=== PATIENT | female | born 1940 | race Caucasian/White ===

== ENCOUNTER 2018-06-28 11:46 | Inpatient (IN) ==
[2018-06-28] MEDS ORDERED: Sodium Chloride 0.9% 1,000 ML PRIMARY IV ONE (12:19)
[2018-06-28] MEDS ORDERED: FAMOTIDINE 20 MG/2 ML VIAL IVP ONE (12:19)
[2018-06-28 12:33] LABS: BASOPHILS # (AUTO) 0.02 10*3/UL; BASOPHILS % (AUTO) 0.1 % (0-1); EOSINOPHILS # (AUTO) 0 10*3/UL; EOSINOPHILS % (AUTO) 0 % (0-8); Hemoglobin [HGB] 14.6 g/dL (12.0-16.0); LYMPHOCYTES # (AUTO) 0.88 10*3/uL; MEAN CORPUSCULAR HEMOGLOBIN 30.6 PG (27-31); MEAN CORPUSCULAR VOLUME 90.1 FL (81-99); MEAN PLATELET VOLUME 9.7 FL (7.4-12.2); MONOCYTES # (AUTO) 0.99 10*3/UL (0.3-0.8); MONOCYTES % (AUTO) 4.3 % (5-15); NEUTROPHILS # (AUTO) 21.33 10*3/UL; NEUTROPHILS % (AUTO) 91.7 % (50-80); RED BLOOD COUNT 4.77 10^6/uL (4.20-5.40)
[2018-06-28 12:50] LABS: BLOOD UREA NITROGEN 27 mg/dL (7-22); SERUM ALBUMIN 4.2 g/dL (3.5-4.8)
[2018-06-28 12:51] LABS: LIPASE 42 IU/L (23-300)
[2018-06-28 12:54] LABS: PLATELET MORPHOLOGY COMMENT NORMAL MORPHOLOGY (NORM); RBC MORPHOLOGY COMMENT NORMAL MORPHOLOGY (NORM); WBC MORPHOLOGY COMMENT NORMAL MORPHOLOGY (NORM)
[2018-06-28 12:55] LABS: BILIRUBIN,URINE NEGATIVE (NEG); CLARITY,URINE CLEAR (CLEAR); COLOR,URINE YELLOW (Y); GLUCOSE, URINE (UA) NEGATIVE (NEG); OCCULT BLOOD,URINE MODERATE (NEG); PROTEIN,URINE TRACE mg/dl (NEG); UROBILINOGEN,URINE 0.2 EU/dL (0.2)
[2018-06-28 12:57] LABS: BACTERIA,URINE RARE; RBC,URINE 0-3 /hpf; SQUAMOUS EPITHELIAL CELL,UR RARE; URINE SAMPLE TYPE CATH SPECIMEN
[2018-06-28] MEDS ORDERED: MORPHINE SULFATE 4 MG/1 ML IVP ONE (13:42)
--- NOTE | 2018-06-28 13:58 | DI ---
INDICATION: Abdominal pain TECHNIQUE: Multiple, contiguous axial cuts of the abdomen and pelvis are obtained from the lung bases to the ischial tuberosities. Sagittal and coronal reformatted images are available. COMPARISON: None FINDINGS: The lung bases are clear. Coarse calcification of the mitral valve. The liver and spleen are normal in size and free of mass lesions. The gallbladder, bile ducts and pancreas are normal. The adrenal gland are unremarkable. The kidneys are normal in size and contour. No stones, lesions or hydronephrosis. The appendix is unremarkable. No obstruction. Thickening of the transverse colon to the sigmoid colon with surrounding inflammatory changes seen consistent with colitis. No organized fluid collection. Aorta is normal caliber. Atherosclerotic vascular disease. No adenopathy or extraluminal air. The osseous structures are normal IMPRESSION: 1. Thickening of the transverse colon to the sigmoid colon with surrounding inflammatory changes seen consistent with colitis. 2. Atherosclerotic vascular disease.
--- NOTE | 2018-06-28 15:41 | CONSULT ---
Consult Note - Consult Consult Date: 06/28/18 Reason for Consult: PreOp Consulation : General Surgery Requesting Physician: Dr. Hearn Primary Care Provider: NOT IN TABLE - History of Present Illness History of Present Illness: 77-year-old female who's struggling through [place] who developed left lower quadrant abdominal pain. The pain started yesterday at 2 PM. She started having bloody stools at 4 AM today. She states that the pain is a 10 out of 10. She has never had pain like this before. The pain just want to get better since she came in for evaluation. She had a 22,000 white count. BUN was elevated at 23. CT scan showed sigmoid and transverse colitis. No free air. There is no air within the bowel wall. Patient tells me that she had a colonoscopy one year ago that was "unremarkable". This was done [facility]. Therefore , there is no records of this. Review of Systems - Constitutional Constitutional: REPORTS: Negative System Review, General Health Excellent - Integumentary Integumentary: REPORTS: Negative System Review - Ear/Nose Exam Ear/Nose Exam: REPORTS: Negative System Review - Respiratory Respiratory: REPORTS: Negative System Review - Cardiovascular Cardiovascular: REPORTS: Negative System Review - Gastrointestinal Gastrointestinal / Abdominal: REPORTS: See HPI - Genitourinary Genitourinary: REPORTS: Negative System Review - Gynecological Gynecological: REPORTS: Negative System Review - Musculoskeletal Musculoskeletal: REPORTS: Back Pain - Hematlogic / Lymphatic Hematologic / Lymphatic: REPORTS: Negative System Review - Neurological Neurologic: REPORTS: Negative System Review - Psychiatric Psychiatric: REPORTS: Negative System Review Past Medical History Medical History: Hypercholesterolemia hypertension hypothyroidism history of a CVA Surgical History: Hysterectomy back surgery knee scopes and a bladder sling Tobacco Use: Never Smoker In the Past 12 Months, Have Used or Abuse Any of the Following Substance: None Medication / Allergies Home Medications: Home Medications 3 Medication Instructions Recorded Confirmed Type Amlodipine Besylate [Norvasc] 2.5 mg PO DAILY 06/28/18 06/28/18 History Calcium Carbonate [Caltrate 600] 600 mg PO DAILY 06/28/18 06/28/18 History Clopidogrel [Plavix] 75 mg PO Q48H 06/28/18 06/28/18 History Krill Oil 300 mg PO DAILY 06/28/18 06/28/18 History Levothyroxine Sodium [Synthroid] 25 mcg PO DAILY 06/28/18 06/28/18 History Lisinopril 10 mg PO DAILY 06/28/18 06/28/18 History Magnesium Oxide [Magnesium] 500 mg PO DAILY 06/28/18 06/28/18 History Methenamine 1 gm PO DAILY 06/28/18 06/28/18 History Pitavastatin Calcium [Livalo] 2 mg PO DAILY 06/28/18 06/28/18 History Polyethylene Glycol [Polyox 350 mg PO PRN PRN 06/28/18 06/28/18 History [id number]] Allergies/Adverse Reactions: Allergies 3 Allergy/AdvReac Type Severity Reaction Status Date / Time Penicillins Allergy RASH Verified 06/28/18 11:49 quinine Allergy HIVES Verified 06/28/18 11:49 Results - Labs CBC and BMP: 06/28/18 12:19 06/28/18 12:19 Exam - Vitals Vital Signs: Vital Signs Temperature 98.7 F Temperature Source Temporal Artery Scan Pulse Rate [Pulse Oximeter] 72 Respiratory Rate 20 Blood Pressure [Left Arm] 178/79 Pulse Ox 95 Oxygen Delivery Method Room Air Height 5 ft 4 in Weight 140 lb - General General Appearance: No Acute Distress, Cooperative - Head Head Exam: Normocephalic - Eye Eye Exam: POSITIVE: PERRL, EOMI - Respiratory Respiratory Exam: POSITIVE: Clear to Auscultation - Bilaterally, Breathing Non Labored - GI/Abdominal GI/Abdominal Exam: POSITIVE: Soft, No Hepatomegaly, No Splenomegaly Additional GI/Abdominal Exam Details: Patient has no pulsatile masses. Abdomen is soft but tender to palpation left lower quadrant. There is no rebound or rigidity present - Rectal Rectal Exam: POSITIVE: Deferred - External Exam: POSITIVE: Deferred - Extremities Extremities Exam: POSITIVE: Full ROM, No Edema Present - Neurological Neurological Exam: POSITIVE: Alert, Oriented x 3, CN II-XII Intact - Psychiatric Psychiatric Exam: POSITIVE: Normal Affect, Normal Mood - Integumentary Integumentary Exam: POSITIVE: Normal Color, Dry Assessment and Plan - Patient Problems (1) Diverticulitis large intestine w/o perforation or abscess w/bleeding Current Visit: Yes Status: Acute Code(s): K57.33 - Diverticulitis of large intestine without perforation or abscess with bleeding - Assessment / Plan Additional Assessment/Plan Details: I think the patient most likely has diverticulitis. He does not appear to be freely perforated with an abscess. There is some bloody stools associated with it. Patient will need to hold her Plavix. She'll need to be on IV antibiotics. Within the differential diagnosis ischemic colitis, colon cancer. Given the fact the patient had a normal colonoscopy within a year makes colon cancer unlikely. Patient has no other reason for ischemic colitis therefore do not think this is the most likely diagnosis either.
--- NOTE | 2018-06-28 15:54 | EKG ---
[address] [address] Measurements Intervals [place] Rate: 84 P: 57 VT: 150 QRS: 42 QRSD: 94 T: 44 QT: 391 QTc: 432 Interpretive Statements SINUS RHYTHM No previous ECG available for comparison Electronically Signed On 06-29-18 08:20:17 MDT by Gil Chawla MD [email or web address]
--- NOTE | 2018-06-28 16:05 | PDOC ---
HPI - History of Present Illness Date of Service: 06/28/18 Time of Service: 16:00 Chief Complaint: Abdominal pain that started today with the rectal bleed History of Present Illness: This is 77 years old female with medical history significant for history of hypertension, hypothyroidism, hypercholesterolemia and history of stroke in 2005 who presented to the hospital with abdominal pain that started today. She said she felt constipated last night and took some laxative. 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 Never had this pain before. Because of that came into the ER a CT in the ER showed the colitis and elevated white count. And hence the admission. Currently the pain is mainly in the left lower quadrant. She rates her pain may be 5 out of 10. she feels cold. No nausea, no vomiting. No other symptoms. Past Medical History Medical History: 1. Hypercholesterolemia. 2. Hypertension. 3. Hypothyroidism. 4. History of a CVA that resulted in some right-sided weakness in 2005 apparently she recovered most of her function. 5. History of colonic polyp removal in the . Last coloscopy was 2002 Surgical History: 1. History of Hysterectomy. 2. History of back surgery. 3. Knee scopes. 4. bladder sling Family History: Reviewed an Not Pertinent Past Social History: She used to smoke quit in 2005, doesn't drink no drugs. Lives in [place]. She is camping with her in [place]. They recently visited she [facility] and [place]. They plan to stay in the area up to the . Tobacco Use: Former Smoker In the Past 12 Months, Have Used or Abuse Any of the Following Substance: None Alcohol Use: None Medication / Allergies Home Medications: Home Medications 3 Medication Instructions Recorded Confirmed Type Amlodipine Besylate [Norvasc] 2.5 mg PO DAILY 06/28/18 06/28/18 History Calcium Carbonate [Caltrate 600] 600 mg PO DAILY 06/28/18 06/28/18 History Clopidogrel [Plavix] 75 mg PO Q48H 06/28/18 06/28/18 History Krill Oil 300 mg PO DAILY 06/28/18 06/28/18 History Levothyroxine Sodium [Synthroid] 25 mcg PO DAILY 06/28/18 06/28/18 History Lisinopril 10 mg PO DAILY 06/28/18 06/28/18 History Magnesium Oxide [Magnesium] 500 mg PO DAILY 06/28/18 06/28/18 History Methenamine 1 gm PO DAILY 06/28/18 06/28/18 History Pitavastatin Calcium [Livalo] 2 mg PO DAILY 06/28/18 06/28/18 History Polyethylene Glycol [Polyox 350 mg PO PRN PRN 06/28/18 06/28/18 History [id number]] Allergies/Adverse Reactions: Allergies 3 Allergy/AdvReac Type Severity Reaction Status Date / Time Penicillins Allergy RASH Verified 06/28/18 11:49 quinine Allergy HIVES Verified 06/28/18 11:49 Review of Systems - Review of Systems All Systems: Reviewed & No Additional Complaints Except as Stated Exam - Vitals Vital Signs: Vital Signs Temperature 99.0 F Temperature Source Temporal Artery Scan Pulse Rate [Pulse Oximeter] 70 Respiratory Rate 18 Blood Pressure [Left Arm] 159/51 Pulse Ox 92 Oxygen Delivery Method Nasal Cannula Height 5 ft 4 in Weight 138 lb 9.6 oz - General General Appearance: No Acute Distress, Cooperative - Head Head Exam: Normal Inspection, Atraumatic - Eye Eye Exam: POSITIVE: Normal Appearance - ENT ENT Exam: POSITIVE: Normal Exam - Neck Neck Exam: Normal Inspection - Respiratory Respiratory Exam: POSITIVE: Clear to Auscultation - Bilaterally - Cardiovascular Cardiovascular Exam: POSITIVE: RRR - GI/Abdominal GI/Abdominal Exam: POSITIVE: Normal Bowel Sounds, Non Distended, Soft, No Organomegaly Additional GI/Abdominal Exam Details: Tenderness in left lower quadrant noted. - Rectal Rectal Exam: POSITIVE: Deferred - External Exam: POSITIVE: Deferred - Extremities Extremities Exam: POSITIVE: Normal Inspection - Back Back Exam: POSITIVE: Normal Inspection - Neurological Neurological Exam: POSITIVE: Alert, Oriented x 3, CN II-XII Intact, No Facial Droop, Speech Intact / Clear, Moves All Extremities Equally - Psychiatric Psychiatric Exam: POSITIVE: Normal Affect - Integumentary Integumentary Exam: POSITIVE: Normal Color Results - Labs CBC and BMP: 06/28/18 12:19 06/28/18 12:19 - EKG Data -: EKG Interpreted by Me Rate: Normal EKG Shows Normal: Sinus Rhythm - EKG Data EKG Interpretation: Other (No signifcant EKG changes noted.) - Imaging Status: Report Reviewed by Me (CT abdoemn 1. Thickening of the transverse colon to the sigmoid colon with surrounding inflammatory changes seen consistent with colitis. 2. Atherosclerotic vascular disease) Assessment and Plan - Patient Problems (1) Diverticulitis large intestine w/o perforation or abscess w/bleeding Current Visit: Yes Status: Acute Comment: Per my discussion with Dr. Pete he think this is more diverticulitis. Another possibility is ischemic colitis. Will put her on IV fluids, clear liquid and IV antibiotics. Will repeat her labs in the morning. To me she said the last colonoscopy was in 2002. We'll hold her Plavix just in case she needs surgical intervention. Code(s): K57.33 - Diverticulitis of large intestine without perforation or abscess with bleeding (2) Hypertension Current Visit: Yes Status: Acute Comment: Will put her back on her usual medications Code(s): I10 - Essential (primary) hypertension (3) Hypothyroidism Current Visit: Yes Status: Acute Comment: Resume her previous medication Code(s): E03.9 - Hypothyroidism, unspecified (4) Hypercholesterolemia Current Visit: Yes Status: Acute Comment: Same med Code(s): E78.00 - Pure hypercholesterolemia, unspecified
[2018-06-28] MEDS: Ertapenem Inj 1 GM in Sodium Chloride 0.9% 100 ML IV SCH (16:08)
[2018-06-28] MEDS ORDERED: ACETAMINOPHEN 325 MG TABLET PO PRN (16:24)
[2018-06-28] MEDS ORDERED: ONDANSETRON 4 MG/2 ML VIAL IVP PRN (16:24)
[2018-06-28] MEDS ORDERED: CALCIUM CARBONATE 500 MG (TUMS) CHEWABLE TABLET PO PRN (16:24)
[2018-06-28] MEDS ORDERED: LIDOCAINE W/ SODIUM BICARB 0.5 ML SYR SUBD PRN (16:24)
[2018-06-28] MEDS: Lactated Ringers 1,000 ML PRIMARY IV SCH (16:43)
[2018-06-28] MEDS: MORPHINE SULFATE 2 MG/1 ML IVP PRN ×2 (18:45→22:03)
[2018-06-28] MEDS: PITAVASTATIN CALCIUM 2 MG PO SCH (20:53)
[2018-06-29] MEDS: MORPHINE SULFATE 2 MG/1 ML IVP PRN ×6 (00:38→22:29)
[2018-06-29] MEDS: Lactated Ringers 1,000 ML PRIMARY IV SCH ×3 (00:38→18:04)
--- NOTE | 2018-06-29 04:21 | PDOC ---
Abdomen/Flank HPI - General Chief Complaint: Abdomen Pain Stated Complaint: ab pain and bloody stool Date Seen by Provider: 06/28/18 Time Seen by Provider: 12:00 Source: POSITIVE: Patient, Spouse Exam Limitations: POSITIVE: No limitations Nurse's Notes Reviewed & Considered: Yes - History of Present Illness Initial Comments: The patient is a 77-year-old female. She states that since around 2:30 AM this morning she has had abdominal pain, mainly in the left lower quadrant of the abdomen. She states that she's also had some bright red rectal bleeding. Patient has had a hysterectomy and a "bladder ". She states 8 she still has her appendix and gallbladder. She has felt constipated for the last 2 days. No associated fevers, although she states she has felt "sweaty ". No nausea, vomiting, melena or dysuria or hematuria. Body Location Affected: REPORTS: Abdomen Timing: REPORTS: Constant Duration: <24 hours (Approximately 10 hours) Severity: Moderate Quality: REPORTS: "Pain" Abdominal Pain Onset Location: REPORTS: LLQ Abdominal Pain Radiation: REPORTS: No radiation Context: REPORTS: None Modifying Factors: improves with: Nothing Associated Symptoms: REPORTS: Other (Chun blood per rectum) Similar Symptoms Previously: No Recent Care Received: REPORTS: Denies Any Prior Injuries Related to Current Complaint?: No - Patient Home Medications Home Medications: Home Medications Amlodipine Besylate [Norvasc] 2.5 mg PO DAILY 06/28/18 Calcium Carbonate [Caltrate 600] 600 mg PO DAILY 06/28/18 Clopidogrel [Plavix] 75 mg PO Q48H 06/28/18 Krill Oil 300 mg PO DAILY 06/28/18 Levothyroxine Sodium [Synthroid] 25 mcg PO DAILY 06/28/18 Lisinopril 10 mg PO DAILY 06/28/18 Magnesium Oxide [Magnesium] 500 mg PO DAILY 06/28/18 Methenamine 1 gm PO DAILY 06/28/18 Pitavastatin Calcium [Livalo] 2 mg PO DAILY 06/28/18 Polyethylene Glycol [Polyox Wsr-301] 350 mg PO PRN PRN 06/28/18 - Patient Allergies Allergies/Adverse Reactions: Allergies 3 Allergy/AdvReac Type Severity Reaction Status Date / Time Penicillins Allergy RASH Verified 06/28/18 11:49 quinine Allergy HIVES Verified 06/28/18 11:49 Past Medical History - heen HEENT History: Denies History Cardiovascular History: Hypertension, Hyperlipidemia Respiratory History: Denies History Gastrointestinal History: Other (please comment) Additional Gastrointestinal History: hx of polyps Genitourinary History: Other (please comment) Additional Genitourinary History: bladder sling in place Endocrine History: Hypothyroidism Musculoskeletal History: Arthritis, Back Pain, Joint Pain, Other (please comment ) Additional Musculoskeletal History: Left foot, left shoulder, r carpel tunnel, L toe, Neurological History: CVA Blood Disorders: Denies History Psychiatric History: Other (please comment) Additional Psychiatric History: para 5 4 History of Sexually Transmitted Diseases: No Female Reproductive History: Hysterectomy In Past Year Been Physically Harmed or Verbally Threatened: No History of MDRO: No History of Other Communicable Diseases: No Tobacco Use: Former Smoker In the Past 12 Months, Have Used or Abuse Any Substance: None Previous Surgical History: Yes Type / Date of Surgery: 1982 right toe. 1990 polyp removal. 1992 ganglion cyst removal r wrist. 1994 r shoulder scope. 2004 refactive eye surgery. 2005 l shoulder scope. 2006 right carpal tunnel release. 2007 l foot/ l toe. 2008 l foot fusion mortons nerve removal. 2009 r thumb. 2009 polyps removed. 2013 lumbar laminectomy x 2. 2016 hysterectomy / sacralcopoplexy. 2018 radiofrequency ablation Significant Family History: No pertinent family hx Past Medical History Reviewed: Reviewed - No Changes ROS - Limitations ROS Limitations: No Limitations Constitution: REPORTS: Denies Symptoms Cardiovascular: REPORTS: Denies Cardiac Symptoms Respiratory: REPORTS: Denies Resp Symptoms Neurological: REPORTS: Denies Neuro Symptoms Gastrointestinal: REPORTS: Abdominal Pain, Bloody Stools Endocrine: REPORTS: Denies Symptoms Musculoskeletal: REPORTS: Denies MS Symptoms Genitourinary: REPORTS: Denies Symptoms Eyes: REPORTS: Denies Symptoms ENT: REPORTS: Denies Symptoms Skin: REPORTS: Denies Skin Symptoms Lympathic: REPORTS: Denies Lympathic Symptoms Immunologic: POSITIVE: Denies Symptoms Psychiatric: POSITIVE: Denies Psych Symptoms Abdominal/Flank Pain PE - General Appearance General Appearance: POSITIVE: Alert, Cooperative, No Acute Distress, No Evidence of Trauma - Neck Neck: POSITIVE: Normal Inspection, No Apparent Injury - Respiratory Respiratory: POSITIVE: No Respiratory Distress, Breath Sounds Normal, Chest Non- Tender - Cardiovascular Cardiovascular: POSITIVE: Regular Rate and Rhythm, Heart Sounds Normal, Equal Pulses, Strong Pulses Peripheral Pulses: Radial (R): 2+, Radial (L): 2+ - Chest Chest: POSITIVE: Non Tender - Abdomen Abdomen: Soft: (All Quadrants), Normal Bowel Sounds: (All Quadrants), Denies Tenderness: (RLQ), (LUQ), (RUQ), No Splenomegaly: (All Quadrants), No Hepatomegaly: (All Quadrants), No Guarding: (All Quadrants), No Rebound: (All Quadrants), No Palpable Pulse: (All Quadrants), No Palpabale Mass: (All Quadrants), No Distention: (All Quadrants), No Rigidity: (All Quadrants), Tenderness Noted: (LLQ) Additional Abdominal Details: Abdominal examination shows bowel sounds to be active. Patient does have pain on palpation over the left lower part of the abdomen, without masses, organomegaly or rebound. - Genital / Rectal Rectal: POSITIVE: Non Tender, Normal Rectal Tone, No Stool, Other (No stool is found in the rectal vault. There is chun blood on the tip of the examining glove.). NEGATIVE: Heme Negative Stool - Back Back: POSITIVE: Normal Inspection - Skin Skin: POSITIVE: Intact, Normal For Race, Warm, Dry, No Rash - Extremities Extremity: Non-Tender: (All Extremities), Normal ROM: (All Extremities), Normal Inspection: (All Extremities) - Neurological Neurological: POSITIVE: Oriented X3, client coordinator Normal As Tested, Motor Normal, Sensation Normal, 5, 6 - Psychological Psychiatric: POSITIVE: Affect Appropriate, Mood Appropriate Images - Complete Complete: 1 - Area of abdominal pain Abdomen Progress - Results Reviewed by me Xrays/CTs/US Reviewed by me: Yes Discussed with Radiologist: Yes Radiology Findings: CT scan abdomen and pelvis with IV contrast read by radiologist as showing thickening of the transverse and sigmoid colon with surrounding inflammatory changes, consistent with colitis Lab Results Reviewed by Me: Yes CBC and BMP: 06/28/18 12:19 06/28/18 12:19 Lab Results:: Laboratory Results 3 06/28/18 06/28/18 06/28/18 12:19 12:19 12:50 WBC 23.25 H RBC 4.77 Hgb 14.6 Hct 43.0 MCV 90.1 MCH 30.6 MCHC 34.0 RDW Std Deviation 49.3 RDW Coeff of Azam 15.1 H Plt Count 238 MPV 9.7 Immature Gran % (Auto) 0.1 Neut % (Auto) 91.7 H Lymph % (Auto) 3.8 L [place] % (Auto) 4.3 L Eos % (Auto) 0 Baso % (Auto) 0.1 Immature Gran # (Auto) 0.03 Neut # (Auto) 21.33 Lymph # (Auto) 0.88 [place] # (Auto) 0.99 H Eos # (Auto) 0 Baso # (Auto) 0.02 WBC Morphology Comment Normal morphology Plt Morphology Comment Normal morphology RBC Morph Comment Normal morphology Sodium 142 Potassium 3.8 Chloride 106 Carbon Dioxide 25 Anion Gap 11 BUN 27 H Creatinine 1.0 Estimated GFR Guard Immigration BUN/Creatinine Ratio 27.00 H Glucose 137 H Calculated Osmolality 300.0 H Calcium 9.5 Total Bilirubin 0.4 AST 40 H ALT 25 Alkaline Phosphatase 80 Total Protein 7.7 Albumin 4.2 Globulin 3.5 Albumin/Globulin Ratio 1.20 L Amylase 84 Lipase 42 Ur Collection Type Cath specimen Urine Color Yellow Urine Clarity Clear Urine pH 5.0 Ur Specific [place] 1.020 Urine Protein Trace Urine Glucose (UA) Negative Urine Ketones Trace A Urine Occult Blood Moderate H Urine Nitrate Negative Urine Bilirubin Negative Urine Urobilinogen 0.2 Ur Leukocyte Esterase Negative Urine RBC 0-3 Urine WBC None Ur Squamous Epith Cells Rare Ur Renal Epithelial Cell None Urine Crystals None Urine Bacteria Rare Urine Casts None Urine Mucus Few Urine Trichomonas None Urine Yeast None Ur Culture Indicated? Culture not set - Patient's Progress Pain Medication Addressed: POSITIVE: Yes (Morphine 4 mg IV) School/Work Release Addressed: POSITIVE: Not Applicable Re-examine Time: 14:00 Re-Examine Comment: Patient hydrated with a liter of normal saline and was given morphine 4 mg IV, which seemed to reduce her pain. Status: POSITIVE: Improved, Re-Examined - Consult Consult (If Yes, Name of Consulting MD & Time Called): Yes (Dr. Andino, hospitalist, [id number]; Dr. Sawant, surgeon, [id number]) Consulting MD will see pt:: POSITIVE: [facility] [place] Admit Counseled: POSITIVE: Patient, Family (), RE: Lab Results, RE: Radiology Results, RE: DX, RE: Need for F/U Patient Care Time - Estimated PCT Patient Care Time (In Minutes): 60 Vital Signs - Recent Vital Signs Vital Signs: Vital Signs (Last 8 hours) Temp Pulse Resp BP Pulse Ox 06/29/18 00:33 98.4 F 86 18 134/60 92 - VS Reviewed Vital Signs Reviewed: Yes Discharge Clinical Impression: Colitis, Abdominal pain, Gastrointestinal bleeding Discharge Disposition: Admit to Inpatient Date Decision to Admit to Inpatient: 06/28/18 Time Decision to Admit to Inpatient: 14:00
[2018-06-29] MEDS: LEVOTHYROXINE 25 MCG TABLET PO SCH (04:48)
[2018-06-29] MEDS: DOCUSATE 100 MG CAPSULE PO PRN (04:48)
[2018-06-29 05:28] LABS: BASOPHILS # (AUTO) 0.03 10*3/UL; BASOPHILS % (AUTO) 0.2 % (0-1); EOSINOPHILS # (AUTO) 0.03 10*3/UL; EOSINOPHILS % (AUTO) 0.2 % (0-8); Hematocrit [HCT] 37.7 % (37.0-47.0); Hemoglobin [HGB] 12.7 g/dL (12.0-16.0); MEAN CORPUSCULAR HEMOGLOBIN 30.4 PG (27-31); MEAN CORPUSCULAR HGB CONC 33.7 g/dL (33-37); MEAN CORPUSCULAR VOLUME 90.2 FL (81-99); MEAN PLATELET VOLUME 9.4 FL (7.4-12.2); MONOCYTES # (AUTO) 1.28 10*3/UL (0.3-0.8); MONOCYTES % (AUTO) 6.7 % (5-15); NEUTROPHILS # (AUTO) 16.12 10*3/UL; NEUTROPHILS % (AUTO) 83.8 % (50-80); RED BLOOD COUNT 4.18 10^6/uL (4.20-5.40)
[2018-06-29 06:12] LABS: PLATELET MORPHOLOGY COMMENT NORMAL MORPHOLOGY (NORM); RBC MORPHOLOGY COMMENT NORMAL MORPHOLOGY (NORM); WBC MORPHOLOGY COMMENT NORMAL MORPHOLOGY (NORM)
[2018-06-29 06:29] LABS: BLOOD UREA NITROGEN 17 mg/dL (7-22); BUN/CREATININE RATIO 18.88 (6-20); SERUM ALBUMIN 2.9 g/dL (3.5-4.8)
--- NOTE | 2018-06-29 07:18 | PDOC(PROG) ---
Date and Time of Service: 06/29/2018 7:19 AM Interval History: Subjective Patient continued to have some abdominal pain. She think is more gas this time. Abdomen is not as tender as before. No nausea. She did not have a bowel movement since she's been here. No more bleeding. Objective : Data - Labs CBC and BMP: 06/29/18 05:10 06/29/18 05:10 Objective : Exam - General General Appearance: No Acute Distress, Cooperative - Head Head Exam: Normal Inspection - Eye Eye Exam: Normal Appearance - ENT ENT Exam: Normal Exam - Neck Neck Exam: Normal Inspection - Respiratory Respiratory Exam: Clear to Auscultation - Bilaterally - Cardiovascular Cardiovascular Exam: RRR - GI/Abdominal GI/Abdominal Exam: Non Distended, Soft, No Organomegaly Additional GI/Abdominal Exam Details: There is some still tenderness in the left lower quadrant but it's less than yesterday. Bowel sounds are sluggish. - Rectal Rectal Exam: Deferred - External Exam: Deferred Exam: Deferred - Extremities Extremities Exam: Normal Inspection - Back Back Exam: Normal Inspection - Neurological Neurological Exam: Alert, Oriented x 3, CN II-XII Intact, No Facial Droop, Speech Intact / Clear, Moves All Extremities Equally - Psychiatric Psychiatric Exam: Normal Affect - Integumentary Integumentary Exam: Normal Color Assessment and Plan - Patient Problems (1) Diverticulitis large intestine w/o perforation or abscess w/bleeding Current Visit: Yes Status: Acute Comment: Continue current IV antibiotics with IV fluid. Continue morphine. I did ask her again about when she did have the colonoscopy she said she is not sure. But she doesn't think it was last year. This time she said maybe it was 2 years ago. She said she will double check with her . Code(s): K57.33 - Diverticulitis of large intestine without perforation or abscess with bleeding (2) Hypertension Current Visit: Yes Status: Acute Comment: Same med Code(s): I10 - Essential (primary) hypertension (3) Hypothyroidism Current Visit: Yes Status: Acute Comment: Same medications Code(s): E03.9 - Hypothyroidism, unspecified (4) Hypercholesterolemia Current Visit: Yes Status: Acute Comment: Same med Code(s): E78.00 - Pure hypercholesterolemia, unspecified
[2018-06-29] MEDS: AmLODIPine Tab 2.5 MG TABLET PO SCH (08:13)
[2018-06-29] MEDS: LISINOPRIL 10 MG TABLET PO SCH (08:13)
--- NOTE | 2018-06-29 08:42 | PDOC(PROG) ---
Date and Time of Service: 06/29/2018 had 8:30 Interval History: Patient states that she is actually feeling better. She is having less pain. She had a bloody stool this morning. Vital signs stable hemoglobin stable Objective : Data - Labs CBC and BMP: 06/29/18 05:10 06/29/18 05:10 - Vital Signs Vital Signs and I&O: Vital Signs - Last Taken Temperature 98.9 F 06/29/18 06:25 Pulse Rate 91 06/29/18 06:25 Respiratory Rate 17 06/29/18 06:25 Blood Pressure 147/67 06/29/18 06:25 Pulse Ox 92 06/29/18 06:25 Intake and Output (24hr x 4 totals) 06/27/18 06/28/18 06/29/18 06/30/18 05:59 05:59 05:59 05:59 Intake Total 2817 / 2817 240 / 240 Output Total 605 / 605 500 / 500 Balance 2212 / 2212 -260 / -260 Objective : Exam - General General Appearance: No Acute Distress - GI/Abdominal GI/Abdominal Exam: Normal Bowel Sounds, Non Distended, Soft Additional GI/Abdominal Exam Details: Left lower quadrant tenderness but less than yesterday Assessment and Plan - Patient Problems (1) Diverticulitis large intestine w/o perforation or abscess w/bleeding Current Visit: Yes Status: Acute Code(s): K57.33 - Diverticulitis of large intestine without perforation or abscess with bleeding - Assessment / Plan Additional Assessment/Plan Details: Overall the patient is doing better. She's been less than 24 hours of IV antibiotic therapy. Continue current treatment.
[2018-06-29] MEDS: Ertapenem Inj 1 GM in Sodium Chloride 0.9% 100 ML IV SCH (16:13)
[2018-06-29] MEDS ORDERED: Ertapenem Inj 1 GM in Sodium Chloride 0.9% 100 ML IV SCH (17:00)
[2018-06-29] MEDS: PITAVASTATIN CALCIUM 2 MG PO SCH (21:27)
[2018-06-30] MEDS: Lactated Ringers 1,000 ML PRIMARY IV SCH ×2 (01:19→11:37)
[2018-06-30] MEDS: MORPHINE SULFATE 2 MG/1 ML IVP PRN ×3 (01:20→22:47)
[2018-06-30] MEDS: LEVOTHYROXINE 25 MCG TABLET PO SCH (05:17)
[2018-06-30 05:37] LABS: BASOPHILS # (AUTO) 0.03 10*3/UL; BASOPHILS % (AUTO) 0.2 % (0-1); EOSINOPHILS % (AUTO) 0.7 % (0-8); Hematocrit [HCT] 33.7 % (37.0-47.0); Hemoglobin [HGB] 11.3 g/dL (12.0-16.0); LYMPHOCYTES # (AUTO) 2.23 10*3/uL; MEAN CORPUSCULAR HEMOGLOBIN 30.8 PG (27-31); MEAN CORPUSCULAR HGB CONC 33.5 g/dL (33-37); MEAN CORPUSCULAR VOLUME 91.8 FL (81-99); MEAN PLATELET VOLUME 9.8 FL (7.4-12.2); MONOCYTES # (AUTO) 0.96 10*3/UL (0.3-0.8); MONOCYTES % (AUTO) 6.3 % (5-15); NEUTROPHILS # (AUTO) 11.95 10*3/UL; NEUTROPHILS % (AUTO) 78.1 % (50-80); RED BLOOD COUNT 3.67 10^6/uL (4.20-5.40)
[2018-06-30 05:46] LABS: PLATELET MORPHOLOGY COMMENT NORMAL MORPHOLOGY (NORM); RBC MORPHOLOGY COMMENT NORMAL MORPHOLOGY (NORM); WBC MORPHOLOGY COMMENT NORMAL MORPHOLOGY (NORM)
--- NOTE | 2018-06-30 07:28 | PDOC(PROG) ---
Date and Time of Service: 06/30/2018 7:31 AM Interval History: Subjective Patient pain seemed to be less today compared to yesterday. She said she had bowel movement yesterday and there was some blood. Today there is some blood but is less than yesterday. No nausea. He is passing gas. Objective : Data - Labs CBC and BMP: 06/30/18 05:10 06/29/18 05:10 Objective : Exam - General General Appearance: No Acute Distress, Cooperative - Head Head Exam: Normal Inspection, Atraumatic - Eye Eye Exam: Normal Appearance - ENT ENT Exam: Normal Exam - Neck Neck Exam: Normal Inspection - Respiratory Respiratory Exam: Clear to Auscultation - Bilaterally - Cardiovascular Cardiovascular Exam: RRR - GI/Abdominal GI/Abdominal Exam: Normal Bowel Sounds, Non Distended, Soft, No Organomegaly Additional GI/Abdominal Exam Details: There is some tenderness in the left lower quadrant but it's less than yesterday. - Rectal Rectal Exam: Deferred - External Exam: Deferred - Extremities Extremities Exam: Normal Inspection - Back Back Exam: Normal Inspection - Neurological Neurological Exam: Alert, Oriented x 3, CN II-XII Intact, No Facial Droop, Speech Intact / Clear, Moves All Extremities Equally - Psychiatric Psychiatric Exam: Normal Affect - Integumentary Integumentary Exam: Normal Color Assessment and Plan - Patient Problems (1) Diverticulitis large intestine w/o perforation or abscess w/bleeding Current Visit: Yes Status: Acute Comment: Continue current antibiotics. I think we'll keep her another night on IV antibiotics will see how she feels tomorrow and then will decide if we can switch her to by mouth antibiotics tomorrow. We'll cut back on her IV fluid. Consider stopping it later on today. Code(s): K57.33 - Diverticulitis of large intestine without perforation or abscess with bleeding (2) Hypertension Current Visit: Yes Status: Acute Comment: Same med Code(s): I10 - Essential (primary) hypertension (3) Hypothyroidism Current Visit: Yes Status: Acute Comment: Same med Code(s): E03.9 - Hypothyroidism, unspecified (4) Hypercholesterolemia Current Visit: Yes Status: Acute Comment: Same med Code(s): E78.00 - Pure hypercholesterolemia, unspecified
[2018-06-30] MEDS ORDERED: HYDROcodone-APAP 5 MG -325 MG TABLET PO PRN (07:38)
[2018-06-30] MEDS: AmLODIPine Tab 2.5 MG TABLET PO SCH (08:32)
[2018-06-30] MEDS: LISINOPRIL 10 MG TABLET PO SCH (08:32)
--- NOTE | 2018-06-30 13:57 | PDOC(PROG) ---
Date and Time of Service: 06/30/2018 at 1400 hrs. Interval History: Patient states that she's feeling better. Had a small bloody stool Objective : Data - Labs CBC and BMP: 06/30/18 05:10 06/29/18 05:10 - Vital Signs Vital Signs and I&O: Vital Signs - Last Taken Temperature 98.2 F 06/30/18 11:02 Pulse Rate 75 06/30/18 11:02 Respiratory Rate 17 06/30/18 11:02 Blood Pressure 132/47 06/30/18 11:02 Pulse Ox 95 06/30/18 11:02 Intake and Output (24hr x 4 totals) 06/28/18 06/29/18 06/30/18 07/01/18 05:59 05:59 05:59 05:59 Intake Total 2817 / 2817 3696 / 3696 500 / 500 Output Total 605 / 605 2800 / 2800 350 / 350 Balance 2212 / 2212 896 / 896 150 / 150 Objective : Exam - General General Appearance: No Acute Distress - GI/Abdominal GI/Abdominal Exam: Non Tender, Soft Assessment and Plan - Patient Problems (1) Diverticulitis large intestine w/o perforation or abscess w/bleeding Current Visit: Yes Status: Acute Code(s): K57.33 - Diverticulitis of large intestine without perforation or abscess with bleeding - Assessment / Plan Additional Assessment/Plan Details: Continue current care. If he continues passed bloody stools will get her set up for endoscopy
[2018-06-30] MEDS: Ertapenem Inj 1 GM in Sodium Chloride 0.9% 100 ML IV SCH (15:00)
[2018-06-30 16:19] LABS: HEMOGLOBIN A1C 5.76 % (4.2-6.0)
[2018-06-30] MEDS: DOCUSATE 100 MG CAPSULE PO PRN (21:11)
[2018-07-01] MEDS: Lactated Ringers 1,000 ML PRIMARY IV SCH ×2 (01:30→08:33)
[2018-07-01 04:28] VITALS: RESP 20
[2018-07-01] MEDS: LEVOTHYROXINE 25 MCG TABLET PO SCH (04:33)
[2018-07-01 06:07] LABS: BASOPHILS # (AUTO) 0.02 10*3/UL; BASOPHILS % (AUTO) 0.1 % (0-1); EOSINOPHILS # (AUTO) 0.14 10*3/UL; Hematocrit [HCT] 34.6 % (37.0-47.0); Hemoglobin [HGB] 11.5 g/dL (12.0-16.0); LYMPHOCYTES # (AUTO) 1.63 10*3/uL; MEAN CORPUSCULAR HEMOGLOBIN 30.1 PG (27-31); MEAN CORPUSCULAR HGB CONC 33.2 g/dL (33-37); MEAN CORPUSCULAR VOLUME 90.6 FL (81-99); MEAN PLATELET VOLUME 9.6 FL (7.4-12.2); MONOCYTES # (AUTO) 1.14 10*3/UL (0.3-0.8); MONOCYTES % (AUTO) 8.5 % (5-15); NEUTROPHILS % (AUTO) 78.1 % (50-80); RED BLOOD COUNT 3.82 10^6/uL (4.20-5.40)
[2018-07-01 06:12] LABS: PLATELET MORPHOLOGY COMMENT NORMAL MORPHOLOGY (NORM); RBC MORPHOLOGY COMMENT NORMAL MORPHOLOGY (NORM); WBC MORPHOLOGY COMMENT NORMAL MORPHOLOGY (NORM)
[2018-07-01 06:37] LABS: BLOOD UREA NITROGEN 11 mg/dL (7-22); BUN/CREATININE RATIO 13.75 (6-20)
[2018-07-01 07:12] VITALS: BP 150/63; TEMP 97; O2SAT 90
--- NOTE | 2018-07-01 07:47 | PDOC(PROG) ---
Date and Time of Service: 07/01/2018 7:44 AM Interval History: Subjective Patient feels better. She said she had liquid stool doesn't think that that there is blood today. Pain may be about 4 out of 10. She feels better than last night. She said she had worsening pain last night but not today. Objective : Data - Labs CBC and BMP: 07/01/18 06:00 07/01/18 06:00 Objective : Exam - General General Appearance: No Acute Distress, Cooperative - Head Head Exam: Normal Inspection - Eye Eye Exam: Normal Appearance - ENT ENT Exam: Normal Exam - Neck Neck Exam: Normal Inspection - Respiratory Respiratory Exam: Clear to Auscultation - Bilaterally - Cardiovascular Cardiovascular Exam: RRR - GI/Abdominal GI/Abdominal Exam: Normal Bowel Sounds, Non Distended, Soft, No Organomegaly Additional GI/Abdominal Exam Details: Still some tenderness in the left lower quadrant. I think though less than before. - Rectal Rectal Exam: Deferred - External Exam: Deferred Exam: Deferred - Extremities Extremities Exam: Normal Inspection - Back Back Exam: Normal Inspection - Neurological Neurological Exam: Alert, Oriented x 3, CN II-XII Intact, No Facial Droop, Speech Intact / Clear, Moves All Extremities Equally - Psychiatric Psychiatric Exam: Normal Affect Assessment and Plan - Patient Problems (1) Colitis Current Visit: Yes Status: Acute Comment: looks more ischemic colitis. Continue current antibiotics. I told her depending on the decision of Dr. Naidu will decide to discharge her or keep her here. will stop The IV fluid. If he is not going to do the colonoscopy I think will switch her to by mouth antibiotics and discharged home. She need to follow-up for coloscopy then as an outpatient when she goes back home. Code(s): K52.9 - Noninfective gastroenteritis and colitis, unspecified (2) Hypertension Current Visit: Yes Status: Acute Comment: Same med Code(s): I10 - Essential (primary) hypertension (3) Hypothyroidism Current Visit: Yes Status: Acute Comment: Same med Code(s): E03.9 - Hypothyroidism, unspecified (4) Hypokalemia Current Visit: Yes Status: Acute Comment: Will put her on oral potassium replacement Code(s): E87.6 - Hypokalemia
[2018-07-01] MEDS: LISINOPRIL 10 MG TABLET PO SCH (08:37)
[2018-07-01] MEDS: AmLODIPine Tab 2.5 MG TABLET PO SCH (08:37)
[2018-07-01] MEDS ORDERED: POTASSIUM CHLORIDE 20 MEQ TAB PO SCH (09:00)
--- NOTE | 2018-07-01 09:15 | PDOC(PROG) ---
Date and Time of Service: 07/01 at 9:00 Interval History: Patient states that she is having almost no abdominal pain. She has had a normal bowel movement no further bleeding Objective : Data - Labs CBC and BMP: 07/01/18 06:00 07/01/18 06:00 - Vital Signs Vital Signs and I&O: Vital Signs - Last Taken Temperature 97 F 07/01/18 07:10 Pulse Rate 80 07/01/18 07:10 Respiratory Rate 20 07/01/18 07:10 Blood Pressure 150/63 07/01/18 07:10 Pulse Ox 90 07/01/18 07:10 Intake and Output (24hr x 4 totals) 06/29/18 06/30/18 07/01/18 07/02/18 05:59 05:59 05:59 05:59 Intake Total 2817 / 2817 3696 / 3696 3688 / 3688 532 / 532 Output Total 605 / 605 2800 / 2800 2575 / 2575 200 / 200 Balance 2212 / 2212 896 / 896 1113 / 1113 332 / 332 Objective : Exam - GI/Abdominal GI/Abdominal Exam: Non Tender, Non Distended, Soft Assessment and Plan - Patient Problems (1) Diverticulitis large intestine w/o perforation or abscess w/bleeding Current Visit: Yes Status: Acute Code(s): K57.33 - Diverticulitis of large intestine without perforation or abscess with bleeding - Assessment / Plan Additional Assessment/Plan Details: At this point I think the patient is well enough to be discharged home. She should have a colonoscopy in 6-8 weeks. [place].
--- NOTE | 2018-07-01 10:08 | DCSUMMARY ---
Hospitalization Summary Admit Date: 06/28/2018 Discharge Date: 07/01/18 Hospital Course: Discharge diagnoses 1. Colitis likely ischemic. 2. Hypertension 3. Hypothyroidism 4. History of CVA that resulted in some right-sided weakness in 2016. 5. History of colonic polyp removal in the last colonoscopy in 2013 6. History of hysterectomy Hospital course This is a 77 years old female with medical history see for history of hypertension, hypothyroidism, hypercholesterolemia and history of stroke in 2005 who presented to the hospital with abdominal pain that started the day of admission. She said she felt constipated the night before admission and took some laxative. 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 Never had this pain before. Because of the symptoms came into the ER. In the ER a CT showed colitis and elevated white count and hence the admission. Exam was remarkable for tenderness in her abdomen mostly on the left side. She was put on IV fluid and IV antibiotics. We did consult surgery. We thought this is probably ischemic colitis. Gradually there was improvement in her symptoms in terms of improving pain and improving white count. On the day of discharge she was feeling better her exam she wasn't as tender in the left lower quadrant as before. Pain seemed to be controlled. Her white count went down to 13,000 from 23,000 when she was admitted. There was discussion about having a colonoscopy done here but it was decided that she will follow-up with her primary have and that to be done in [place] where she lives. on The day of discharge the bleeding was stopped. We did discharge her on few days of antibiotics, pain medication and potassium. We've held her Plavix while she was here in the hospital I think she can resume it next week. Laboratory Results 06/30/18 07/01/18 07/01/18 Range/Units 05:10 06:00 06:00 WBC 13.35 H (4.8-10.8) 10^3/uL RBC 3.82 L (4.20-5.40) 10^6/uL Hgb 11.5 L (12.0-16.0) g/dL Hct 34.6 L (37.0-47.0) % MCV 90.6 (81-99) FL MCH 30.1 (27-31) PG MCHC 33.2 (33-37) g/dL RDW Std Deviation 47.2 (39-50) fL RDW Coeff of Azam 14.7 H (11.5-14.5) % Plt Count 176 (140-350) 10*3/uL MPV 9.6 (7.4-12.2) FL Immature Gran % (Auto) 0.1 (0-5) % Neut % (Auto) 78.1 (50-80) % Lymph % (Auto) 12.2 (10-50) % Chester % (Auto) 8.5 (5-15) % Eos % (Auto) 1.0 (0-8) % Baso % (Auto) 0.1 (0-1) % Immature Gran # (Auto) 0.02 10*3/UL Neut # (Auto) 10.40 10*3/UL Lymph # (Auto) 1.63 10*3/uL Chester # (Auto) 1.14 H (0.3-0.8) 10*3/UL Eos # (Auto) 0.14 10*3/UL Baso # (Auto) 0.02 10*3/UL WBC Morphology Comment Normal morphology (NORM) Plt Morphology Comment Normal morphology (NORM) RBC Morph Comment Normal morphology (NORM) Sodium 142 (135-145) meq/L Potassium 3.3 L (3.8-5.2) meq/L Chloride 105 (98-112) meq/L Carbon Dioxide 28 (23-33) meq/L Anion Gap 9 (5-20) BUN 11 (7-22) mg/dL Creatinine 0.8 (0.50-1.20) mg/dL BUN/Creatinine Ratio 13.75 (6-20) Glucose 90 (78-110) mg/dL Mean Blood Glucose 105.808 mg/dL Hemoglobin A1c 5.76 (4.2-6.0) % Calculated Osmolality 292.0 (267-292) mOsm/kg Calcium 8.4 L (8.7-10.7) mg/dL Discharge instruction Diet regular Tinnitus started Medications Current Medication(s) 3 Medication Instructions Recorded Confirmed Type Amlodipine Besylate [Norvasc] 2.5 mg PO DAILY 06/28/18 06/28/18 History Calcium Carbonate [Caltrate 600] 600 mg PO DAILY 06/28/18 06/28/18 History Clopidogrel [Plavix] 75 mg PO Q48H 06/28/18 06/28/18 History Krill Oil 300 mg PO DAILY 06/28/18 06/28/18 History Levothyroxine Sodium [Synthroid] 25 mcg PO DAILY 06/28/18 06/28/18 History Lisinopril 10 mg PO DAILY 06/28/18 06/28/18 History Magnesium Oxide [Magnesium] 500 mg PO DAILY 06/28/18 06/28/18 History Methenamine 1 gm PO DAILY 06/28/18 06/28/18 History Pitavastatin Calcium [Livalo] 2 mg PO DAILY 06/28/18 06/28/18 History Polyethylene Glycol [Polyox 350 mg PO PRN PRN 06/28/18 06/28/18 History [id number]] HYDROcodone/APAP 5/325 Tab [Eloy 1 tab PO QID PRN #25 tab 07/01/18 Rx 5/325 Tab] Levofloxacin [Levaquin] 500 mg PO DAILY #4 tab 07/01/18 Rx Potassium Chloride [Klor-Con] 20 meq PO BID #8 tab 07/01/18 Rx metroNIDAZOLE Tab [Flagyl Tab] 500 mg PO TID #12 tab 07/01/18 Rx Follow-up with PCP in 1-2 weeks Condition at discharge was stable for discharge Exam - Vitals Vital Signs: Vital Signs Temperature 97 F Temperature Source Temporal Artery Scan Pulse Rate [Pulse Oximeter] 80 Respiratory Rate 20 Blood Pressure [Right Arm] 150/63 Blood Pressure [Left Arm] 135/58 Pulse Ox 90 Oxygen Flow Rate 1 Oxygen Delivery Method Room Air Height 5 ft 4 in Weight 142 lb Patient Problems - Patient Problem List (1) Diverticulitis large intestine w/o perforation or abscess w/bleeding Current Visit: Yes Status: Acute Code(s): K57.33 - Diverticulitis of large intestine without perforation or abscess with bleeding Category: Medical (2) Hypertension Current Visit: Yes Status: Acute Code(s): I10 - Essential (primary) hypertension Category: Medical (3) Hypothyroidism Current Visit: Yes Status: Acute Code(s): E03.9 - Hypothyroidism, unspecified Category: Medical (4) Hypokalemia Current Visit: Yes Status: Acute Code(s): E87.6 - Hypokalemia Category: Medical
== END 2018-07-01 13:00 | disposition home or self-care (01) | DRG 391 ==
LOC: ER 11:46 → MED/SURG 15:32
PROVIDERS: ADMIT Internal Medicine; ATTEND Internal Medicine